=== PATIENT | female | born 1995 | race Caucasian/White ===

== ENCOUNTER 2016-09-14 05:53 | Emergency (ER) | payer OTHER ==
[~2016-09-14] VITALS: Ht 188 cm; Wt 99.8 kg
[2016-09-14] MEDS ORDERED: VITAFOL-OB CAP1 EACH PO (06:11)
--- NOTE | 2016-09-14 06:15 | ED GI/GU/ABDOMINAL COMPLAINT ---
History of Present Illness General Chief Complaint: Female Urogenital Problems Stated Complaint: "PER PT 7 WKS , ABD PAIN, VAG BLEEDING" Source: patient Exam Limitations: no limitations Vital Signs & Intake/Output Vital Signs & Intake/Output Vital Signs Date Time Temp Pulse Resp B/P Pulse O2 O2 Flow FiO2 Ox Delivery Rate 09/14 915 97.2 74 16 126/68 100 Room Air 09/14 0626 98 Room Air 09/14 0605 97.0 87 16 136/74 98 Room Air Allergies Coded Allergies: No Known Allergies (09/14/16) Reconcile Medications Vit Comb.10/Iron/FA (Vitafol-Ob Caplet) 65 MG-1 MG TABLET 1 TAB PO DAILY (Reported) Triage Note: 20YO FEMALE TO RM 5 W/CO VAG BLEEDING SINCE YESTERDAY. STATES SHE IS 7WEEKS Triage Nurses Notes Reviewed? yes ? y Is pt currently ? No HPI: Patient presents for evaluation of lower abdominal cramping and vaginal bleeding that began yesterday. She was evaluated in the [facility] emergency department and she states a transvaginal ultrasound was unable to detect an intrauterine . A blood test was also obtained and she was told of the number was low although she cannot remember specifically what it was. She has had continued intermittent cramping abdominal pain and vaginal bleeding since that evaluation, prompting her to come to this emergency department for evaluation. Nothing seems to make the cramps feel better or worse. This is her first . She feels she is about 7 weeks based on her last menstrual period. (SLY GARCIA,TYLER Liriano) Past History Travel History Traveled to [place] past 21 day No Medical History Any Pertinent Medical History? see below for history Surgical History Surgical History: non-contributory Psychosocial History What is your primary language Upper Sorbian Family History Hx Contributory? No (TYLER HEART MD) Review of Systems Review of Systems Constitutional: Reports: no symptoms. EENTM: Reports: no symptoms. Respiratory: Reports: no symptoms. Cardiovascular: Reports: no symptoms. GI: Reports: no symptoms. Genitourinary: Reports: see HPI. Musculoskeletal: Reports: no symptoms. Skin: Reports: no symptoms. Neurological/Psychological: Reports: no symptoms. Hematologic/Endocrine: Reports: no symptoms. Immunologic/Allergic: Reports: no symptoms. All Other Systems: Reviewed and Negative (TYLER HEART MD) Physical Exam Physical Exam Gastrointestinal: see below Comments: Gen.: Well-nourished, well-developed, no acute respiratory distress. Head: Normocephalic, atraumatic. Eyes: Normal inspection bilaterally Ears: Normal inspection bilaterally Nose: Normal inspection Throat/mouth : Moist mucosa Neck: Supple, full range of motion, no goiter Heart: Regular rate and rhythm Lungs: Quiet respirations Chest: Nontender Back: Normal range of motion Abdomen: Soft, nontender, nondistended, normal bowel sounds Extremities: Normal range of motion grossly, equal radial pulses, no cyanosis clubbing or edema Neurologic: Cranial nerves grossly intact, speech is clear Skin: warm and dry Psychiatric: Calm, cooperative, no apparent delusions or hallucinations Core Measures ACS in differential dx? No Severe Sepsis Present: No Septic Shock Present: No (SLY GARCIA,TYLER Liriano) Progress Differential Diagnosis: IUP, ectopic, miscarriage Plan of Care: Orders Procedure Date/time Status PROTHROMBIN TIME 09/14 614 Complete HUMAN BETA HCG TITRE 09/14 614 Complete CBC WITHOUT DIFFERENTIAL 09/14 614 Complete TYPE & SCREEN (NOT X-MATCH) 09/14 614 Complete Laboratory Tests 09/14/16 0653: Beta HCG, Quant 438.5 09/14/16 0620: PT 11.9, INR 1.13, CBC w Diff NO MAN DIFF REQ, RBC 4.63, MCV 85.3, MCH 28.4, RDW 14.1, MPV 7.8, Gran % 74.3, Lymphocytes % 17.2 L, Monocytes % 7.2, Eosinophils % 0.9, Basophils % 0.4, Absolute Granulocytes 9.5 H, Absolute Lymphocytes 2.2, Absolute Monocytes 0.9 H, Absolute Eosinophils 0.1, Absolute Basophils 0, PUBS MCHC 33.3 Initial ED EKG: none Comments: 09/14/2016 7:00:33 AM Patient signed out to Dr. Kumar. (SLY GARCIA,TYLER Liriano) Diagnostic Imaging: Viewed by Me: Ultrasound. Discussed w/RAD: Ultrasound. Radiology Impression: Unremarkable pelvic ultrasound. No intrauterine gestation identified. No pelvic free fluid. 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
[2016-09-14 06:30] LABS: ABSOLUTE BASOPHIL COUNT 0 /CUMM (0.0-0.2); ABSOLUTE EOSINOPHIL COUNT 0.1 /CUMM (0.0-0.7); ABSOLUTE GRANULOCYTE CT 9.5 /CUMM (1.4-6.5); ABSOLUTE LYMPH COUNT 2.2 /CUMM (1.2-3.4); ABSOLUTE MONOCYTE COUNT 0.9 /CUMM (0.10-0.60); BASOPHIL % 0.4 % (0.0-2.0); EOSINOPHIL % 0.9 % (0-5); GRANULOCYTE % 74.3 % (42.2-75.2); HEMATOCRIT 39.5 % (37-47); MEAN CORPUSCULAR HGB 28.4 PG (27.0-31.0); MEAN CORPUSCULAR HGB CONC 33.3 G/DL (33.0-37.0); MEAN CORPUSCULAR VOLUME 85.3 FL (81.0-99.0); MEAN PLATELET VOLUME 7.8 FL (7.4-10.4); PLATELET COUNT 232 /CUMM (130-400); RBC DISTRIBUTION WIDTH 14.1 % (11.5-14.5); RED BLOOD CELL CT 4.63 /CUMM (4.20-5.40); WHITE BLOOD CELL COUNT 12.8 /CUMM (4.8-10.8)
[2016-09-14 06:36] LABS: PT 11.9 SEC (9.4-12.5)
--- NOTE | 2016-09-14 08:43 | ULTRASOUND REPORT ---
EXAMINATIONS: ULTRASOUND PELVIC, COMPLETE AND DOPPLER INTERROGATION CLINICAL INFORMATION: Heavy vaginal bleeding. Pain. Concern for ectopic . COMPARISON: None. TECHNIQUE: Transabdominal and transvaginal imaging was performed. Transvaginal imaging was performed for further evaluation of the endometrium and adnexa. Doppler interrogation spectral analysis was performed. FINDINGS: The uterus is of normal size and echogenicity measuring 7.5 x 3.0 x 4.5 cm. A regular homogeneous endometrium is identified measuring 0.6 cm. Both ovaries are of normal size and echogenicity. The right measures 3.0 x 1.8 x 2.1 cm. The left measures 3.1 x 1.6 x 1.6 cm. Normal arterial and venous blood flow is present bilaterally. There is no pelvic free fluid. IMPRESSION: Unremarkable pelvic ultrasound. No intrauterine gestation identified. No pelvic free fluid.
[2016-09-14 09:16] VITALS: BP 126/68
== END 2016-09-14 09:25 ==
LOC: ERH 05:53
PROVIDERS: Emergency Medicine
DX: O20.0 Threatened abortion (principal); Z3A.00 Weeks of gestation of pregnancy not specified